=== PATIENT | male | born 1980 | race African-American/Black ===

== ENCOUNTER 2017-10-13 00:22 | Emergency (ER) | payer OTHER ==
[~2017-10-13] VITALS: Ht 185.4 cm; Wt 95.3 kg
[~2017-10-13 00:22] MED LIST: IBUPROFEN 600600 M1 PO; NOHOMEMEDICATIONS
[2017-10-13 00:27] VITALS: BP 144/90
[2017-10-13] MEDS ORDERED: ZANTAC 150MG T150 MG PO (00:50)
[2017-10-13] MEDS ORDERED: PROTONIX40 MG PO (00:50)
== END 2017-10-13 01:11 | disposition home or self-care (01) ==
LOC: ER 00:22
DX: K21.9 Gastro-esophageal reflux disease without esophagitis (principal); R19.7 Diarrhea, unspecified; F17.210 Nicotine dependence, cigarettes, uncomplicated

== ENCOUNTER 2019-03-29 18:42 | Emergency (ER) | payer OTHER ==
[~2019-03-29] VITALS: Ht 193 cm; Wt 99.8 kg
[~2019-03-29 18:42] MED LIST changes: +PROTONIX40 MG PO; +ZANTAC 150MG T150 MG PO
[2019-03-29 18:55] VITALS: BP 153/104
[2019-03-29 19:24] LABS: URINE BILIRUBIN NEGATIVE (Negative); URINE BLOOD NEGATIVE (Negative); URINE CLARITY CLEAR; URINE COLOR YELLOW; URINE GLUCOSE-RANDOM* NEGATIVE (Negative); URINE KETONES NEGATIVE (Negative); URINE LEUKOCYTES-REFLEX NEGATIVE (Negative); URINE NITRITE-REFLEX NEGATIVE (Negative); URINE PROTEIN (DIPSTICK) NEGATIVE (Negative); URINE UROBILINOGEN 0.2 E.U./dl (0.2-1.0)
== END 2019-03-29 19:55 | disposition home or self-care (01) ==
LOC: ER 18:42
PROVIDERS: Physician Assistant
DX: R21 Rash and other nonspecific skin eruption (principal); F17.210 Nicotine dependence, cigarettes, uncomplicated

== ENCOUNTER → 2020-02-04 | Emergency (ER) | payer OTHER ==
[~2020-02-04] VITALS: Ht 193 cm; Wt 99.8 kg
[2020-02-04 23:45] VITALS: BP 142/89
== END ==
LOC: ER 22:02
DX: R22.42 Localized swelling, mass and lump, left lower limb (principal); Z53.21 Procedure and treatment not carried out due to patient leaving prior to being seen by health care provider

== ENCOUNTER 2020-02-05 18:09 | Emergency (ER) | payer OTHER ==
[~2020-02-05] VITALS: Ht 193 cm; Wt 99.8 kg
[2020-02-05 19:50] VITALS: BP 166/108
== END 2020-02-05 19:50 | disposition home or self-care (01) ==
LOC: ER 18:09
DX: S80.12XA Contusion of left lower leg, initial encounter (principal); F17.210 Nicotine dependence, cigarettes, uncomplicated; V86.56XA Driver of dirt bike or motor/cross bike injured in nontraffic accident, initial encounter; Y93.I9 Activity, other involving external motion; Y92.488 Other paved roadways as the place of occurrence of the external cause; Y99.8 Other external cause status